=== PATIENT | male | born 1985 | race Caucasian/White ===

== ENCOUNTER 2023-09-16 22:43 | Emergency (ER) | payer SELFPAY ==
[~2023-09-16] VITALS: Ht 182.9 cm; Wt 84.5 kg
[2023-09-16 23:33] VITALS: BP 130/89; PULSE 98; RESP 18; TEMP 98.1; O2SAT 97
== END 2023-09-17 04:09 | disposition left against medical advice (07) ==
LOC: ER 22:45
DX: M25.521 Pain in right elbow (principal); M54.50 Low back pain, unspecified; Z53.21 Procedure and treatment not carried out due to patient leaving prior to being seen by health care provider
CPT/HCPCS: 99281